=== PATIENT | male | born 1975 | race Two or more races ===

== ENCOUNTER → 2017-10-28 | Outpatient (CLI) | payer OTHER ==
--- NOTE | 2017-10-28 10:38 | XR ---
EXAMINATION TYPE: XR lumbar spine 2 or 3V DATE OF EXAM: 10/28/2017 CLINICAL HISTORY: Low back pain TECHNIQUE: Frontal and lateral images of the lumbar spine are obtained. COMPARISON: None FINDINGS: There are 5 lumbar type vertebral bodies identified. Vertebral body heights are maintained . There is a grade 1 anterolisthesis of L3 on L4 with pars interarticularis defect seen on the latera l view. Degenerative disc disease is also seen at this level as endplate sclerosis, vacuum disc disea se, and intervertebral disc space narrowing. Ill-defined anterior superior cortical border of the L4 vertebral body could relate to posttraumatic sequela or sequela of degenerative disc disease/Schmorl' s node formation. The overlying soft tissue appears unremarkable. IMPRESSION: Grade 1 anterolisthesis of L3 on L4 with pars interarticularis defect. Irregularity of the anterior s uperior vertebral body of L4 may be posttraumatic sequela or sequela of degenerative disc disease.
== END | disposition home or self-care (01) ==
LOC: RADXRMAIN 09:58
PROVIDERS: ATTEND Emergency Medicine
DX: M43.16 Spondylolisthesis, lumbar region (principal); R93.7 Abnormal findings on diagnostic imaging of other parts of musculoskeletal system
CPT/HCPCS: 72100